=== PATIENT | female | born 1950 | race Caucasian/White ===

== ENCOUNTER 2017-07-21 12:23 | Observation (INO) ==
[2017-07-21 14:33] LABS: Basophils # 0.1 10*3/uL (0.0-0.2); Basophils % 0.9 % (0.0-0.8); Eosinophils # 0.1 10*3/uL (0.0-0.87); Eosinophils % 1.9 % (0.00-10.9); Hemoglobin 10.6 GM/DL (12.0-16.0); Immature Granulocytes % 0.4 %; Immature Granulocytes Absolute 0.03 #; Lymphocytes # 2.5 10*3/uL (1.4-4.0); Lymphocytes % 33.6 % (21.3-54.2); Mean Corpuscular HGB Conc 32.1 GM/DL (32-36); Mean Corpuscular Hemoglobin 28 PG (27-34); Mean Corpuscular Volume 86.6 FL (87-102); Mean Platelet Volume 9.2 FL (9.6-12.0); Monocytes # 0.8 10*3/uL (0.11-0.8); Monocytes % 10.2 % (1.7-12.7); Neutrophils # 3.9 10*3/uL (1.4-7.4); Platelet Count 255 T/CUMM (130-400); Red Blood Count 3.81 MC/CUMM (3.8-5.5); Red Cell Distribution Width 15.6 % (9.3-17.3); White Blood Count 7.4 T/CUMM (4-12)
[2017-07-21 14:39] LABS: INR 1.1; PT Patient Result 11.1 SECS; Partial Thromboplastin Time 26.2 SECS (0-40)
[2017-07-21 14:49] LABS: Alanine Aminotransferase 19 U/L (13-56); Albumin 3.1 G/DL (3.4-5.0); Alkaline Phosphatase 120 U/L (45-117); Aspartate Amino Transferase 16 U/L (0-37); Blood Urea Nitrogen 26 MG/DL (7-18); Calcium 8.8 MG/DL (8.5-10.1); Glucose 54 MG/DL (74-106); Osmolality,Calculated 281.4 MOS/KG (273-304); Potassium 4.1 MMOL/L (3.5-5.1); Sodium 140 MMOL/L (136-145); Total Protein 7.1 G/DL (6.4-8.3); Troponin I Only < 0.015 NG/ML (0.00-0.045)
[2017-07-21] MEDS ORDERED: FUROSEMIDE 40 MG/4 ML VIAL IV STA (15:49)
[2017-07-21] MEDS ORDERED: DEXTROSE 50% 25 GM/50 ML VIAL IV PRN (16:36)
[2017-07-21] MEDS ORDERED: ONDANSETRON 4 MG/2 ML VIAL IV PRN (16:36)
[2017-07-21] MEDS ORDERED: GLUCAGON 1 MG VIAL IM PRN (16:36)
[2017-07-21] MEDS ORDERED: ACETAMINOPHEN 325 MG TABLET PO PRN (16:36)
[2017-07-21] MEDS ORDERED: POTASSIUM CHLORIDE 20 MEQ TABLET PO STA (16:39)
[2017-07-21] MEDS ORDERED: GLIMEPIRIDE 2 MG TABLET PO SCH ×2 (17:00→21:00)
[2017-07-21] MEDS ORDERED: metFORMIN 500 MG TABLET PO SCH (17:00)
[2017-07-21] MEDS ORDERED: ATORVASTATIN 80 MG TABLET PO SCH (21:00)
[2017-07-21] MEDS ORDERED: INSULIN NPH/REGULAR 70/30 100 UNIT/ML SUBCUT SCH (21:00)
[2017-07-21] MEDS ORDERED: NORTRIPTYLINE 25 MG CAPSULE PO SCH (21:00)
[2017-07-21] MEDS ORDERED: ENOXAPARIN 40 MG/0.4 ML SYRINGE SUBCUT SCH (21:00)
[2017-07-21] MEDS ORDERED: IRBESARTAN 150 MG TABLET PO SCH (21:00)
[2017-07-21] MEDS ORDERED: hydroCHLOROthiazide 12.5 MG CAPSULE PO SCH (21:00)
[2017-07-21] MEDS: metFORMIN 500 MG TABLET PO SCH (21:30)
[2017-07-21] MEDS: FERROUS SULFATE 325 MG TABLET PO SCH (21:30)
[2017-07-21] MEDS: CARVEDILOL 12.5 MG TABLET PO SCH (21:30)
[2017-07-21] MEDS: INSULIN LISPRO 100 UNIT/ML SUBCUT SCH (21:32)
[2017-07-21] MEDS ORDERED: POTASSIUM CHLORIDE 20 MEQ TABLET PO ONE (22:00)
[2017-07-21] MEDS ORDERED: FUROSEMIDE 40 MG/4 ML VIAL IV ONE (22:00)
[2017-07-22 04:40] LABS: Calcium 9.5 MG/DL (8.5-10.1); Osmolality,Calculated 289.4 MOS/KG (273-304); Potassium 4.3 MMOL/L (3.5-5.1); Risk Ratio 4.54; Thyroid Stimulating Hormone 1.77 uIU/ml (0.358-3.74); VLDL CHOLESTEROL 62.8 MG/DL
[2017-07-22] MEDS: INSULIN LISPRO 100 UNIT/ML SUBCUT SCH ×2 (08:32→12:33)
[2017-07-22] MEDS ORDERED: CLOPIDOGREL 75 MG TABLET PO SCH (09:00)
[2017-07-22] MEDS ORDERED: POTASSIUM CHLORIDE 10 MEQ TABLET PO SCH (09:00)
[2017-07-22] MEDS ORDERED: INSULIN NPH/REGULAR 70/30 100 UNIT/ML SUBCUT SCH (09:00)
[2017-07-22] MEDS ORDERED: CYANOCOBALAMIN 500 MCG TABLET PO SCH (09:00)
[2017-07-22] MEDS ORDERED: FUROSEMIDE 40 MG TABLET PO SCH (09:00)
[2017-07-22] MEDS ORDERED: MAGNESIUM OXIDE 400 MG TABLET PO SCH (09:00)
[2017-07-22] MEDS ORDERED: PANTOPRAZOLE 20 MG TABLET PO SCH (09:00)
[2017-07-22] MEDS ORDERED: GLIMEPIRIDE 4 MG TABLET PO SCH (09:00)
[2017-07-22] MEDS: CARVEDILOL 12.5 MG TABLET PO SCH (09:55)
[2017-07-22] MEDS: FERROUS SULFATE 325 MG TABLET PO SCH (09:56)
[2017-07-22] MEDS: metFORMIN 500 MG TABLET PO SCH (09:56)
[2017-07-22] MEDS ORDERED: FUROSEMIDE 20 MG TABLET PO SCH (10:04)
[2017-07-22 12:54] VITALS: BP 143/89
== END 2017-07-22 14:56 | disposition home or self-care (01) ==
LOC: N.EDINP 12:23 → N.ED 12:23 → N.EDINP 17:20 → N.TELEN 17:33
PROVIDERS: ADMIT Hospitalist; ATTEND Hospitalist

== ENCOUNTER 2020-01-19 20:48 | Inpatient (IN) ==
[2020-01-19] MEDS ORDERED: NITROGLYCERIN 2% OINT 1 INCH/GM PACK TOP STA (21:51)
[2020-01-19] MEDS ORDERED: ASPIRIN 325 MG TABLET PO STA (21:51)
[2020-01-19] MEDS ORDERED: MORPHINE 4 MG/1 ML VIAL IV STA (21:51)
[2020-01-19] MEDS ORDERED: ONDANSETRON 4 MG/2 ML VIAL IV STA (21:51)
[2020-01-19] MEDS ORDERED: ALUM/MAG/SIMETH/LIDO VISC 1:1 30 ML BOTTLE PO STA (21:51)
[2020-01-19 22:00] LABS: Basophils # 0.1 10*3/uL (0.0-0.2); Basophils % 0.6 % (0.0-0.8); Eosinophils # 0.2 10*3/uL (0.0-0.87); Eosinophils % 2.2 % (0.00-10.9); Hematocrit 34.4 VOL% (35.7-47.0); Hemoglobin 11.5 GM/DL (12.0-16.0); Immature Granulocytes % 0.6 %; Immature Granulocytes Absolute 0.06 #; Lymphocytes # 2.1 10*3/uL (1.4-4.0); Lymphocytes % 21.7 % (21.3-54.2); Mean Corpuscular HGB Conc 33.4 GM/DL (32-36); Mean Corpuscular Volume 88.9 FL (87-102); Mean Platelet Volume 9.2 FL (9.6-12.0); Monocytes % 7.4 % (1.7-12.7); Neutrophils % 67.5 % (38.7-73.9); Platelet Count 267 T/CUMM (130-400); Red Blood Count 3.87 MC/CUMM (3.8-5.5); Red Cell Distribution Width 14.5 % (9.3-17.3); White Blood Count 9.7 T/CUMM (4-12)
[2020-01-19] MEDS ORDERED: NICOTINE 21 MG/24 HR PATCH TRANSDERM PRN (22:30)
[2020-01-19] MEDS ORDERED: hydrALAZINE 20 MG/1 ML VIAL IV PRN (22:30)
[2020-01-19] MEDS ORDERED: guaiFENesin/DM ER 600-30 MG TABLET PO PRN (22:30)
[2020-01-19] MEDS ORDERED: diphenhydrAMINE CAP 25 MG CAPSULE PO PRN (22:30)
[2020-01-19] MEDS ORDERED: DEXTROSE 50% 25 GM/50 ML VIAL IV PRN (22:30)
[2020-01-19] MEDS ORDERED: MORPHINE 4 MG/1 ML VIAL IV PRN (22:30)
[2020-01-19] MEDS ORDERED: GLUCAGON 1 MG VIAL IM PRN (22:30)
[2020-01-19] MEDS ORDERED: ACETAMINOPHEN 325 MG TABLET PO PRN (22:30)
[2020-01-19] MEDS ORDERED: ONDANSETRON 4 MG/2 ML VIAL IV PRN (22:30)
[2020-01-19 22:45] LABS: PT Patient Result 10.9 SECS (9.8-11.9)
[2020-01-19 23:03] LABS: Albumin 3.2 G/DL (3.4-5.0); Bilirubin,Total 0.4 MG/DL (0.2-1.0); Calcium 8.8 MG/DL (8.5-10.1); Osmolality,Calculated 293.5 MOS/KG (273-304); Total Protein 6.7 G/DL (6.4-8.3)
[2020-01-19] MEDS ORDERED: ENOXAPARIN 100 MG/ML SYRINGE SUBCUT STA (23:07)
[2020-01-19 23:08] LABS: Risk Ratio 6.91
[2020-01-20] MEDS ORDERED: CLOPIDOGREL 75 MG TABLET ONE (06:39)
[2020-01-20] MEDS ORDERED: CLOPIDOGREL 75 MG TABLET PO SCH (07:00)
[2020-01-20] MEDS ORDERED: FUROSEMIDE 20 MG TABLET PO SCH (09:00)
[2020-01-20] MEDS ORDERED: POTASSIUM CHLORIDE RIDER 10 MEQ in PREMIX 1 EACH IV PRN (09:07)
[2020-01-20] MEDS ORDERED: DIAZEPAM 5 MG TABLET PO ONE (09:07)
[2020-01-20] MEDS ORDERED: MAGNESIUM SULF RIDER 2 GM in PREMIX 1 EACH IV PRN (09:07)
[2020-01-20] MEDS ORDERED: diphenhydrAMINE CAP 25 MG CAPSULE PO ONE (09:07)
[2020-01-20] MEDS ORDERED: SODIUM CHLORIDE 0.45% 1,000 ML IV SCH (09:30)
[2020-01-20] MEDS ORDERED: HEPARIN/NACL 0.9% 2 UNITS/ML 1,000 ML IV ONE (12:20)
[2020-01-20] MEDS ORDERED: LIDOCAINE 1%/EPI INJ 20 ML VIAL ONE (12:45)
[2020-01-20] MEDS ORDERED: MIDAZOLAM 2 MG/2 ML VIAL ONE (12:45)
[2020-01-20] MEDS ORDERED: fentaNYL 100 MCG/2 ML VIAL ONE (12:45)
[2020-01-20] MEDS: INSULIN REGULAR 100 UNIT/ML SUBCUT SCH ×3 (12:59→21:43)
[2020-01-20] MEDS: INSULIN NPH/REGULAR 70/30 100 UNIT/ML SUBCUT SCH ×2 (14:26→21:43)
[2020-01-20] MEDS: PANTOPRAZOLE 40 MG TABLET PO SCH (14:37)
[2020-01-20] MEDS: ASPIRIN EC 81 MG TABLET PO SCH (14:37)
[2020-01-20] MEDS: carvediloL 25 MG TABLET PO SCH ×2 (14:37→17:51)
[2020-01-20] MEDS: HEPARIN DRIP 25,000 UNITS/500 ML PREMIX IV SCH (15:01)
[2020-01-20] MEDS: GLIMEPIRIDE 2 MG TABLET PO SCH (17:50)
[2020-01-20] MEDS ORDERED: NORTRIPTYLINE 75 MG CAPSULE PO SCH (21:00)
[2020-01-20] MEDS: LOSARTAN 50 MG TABLET PO SCH (21:38)
[2020-01-20] MEDS: traZODone 50 MG TABLET PO SCH (21:38)
[2020-01-20] MEDS: MAGNESIUM OXIDE 400 MG TABLET PO SCH (21:38)
[2020-01-20] MEDS: FERROUS SULFATE 325 MG TABLET PO SCH (21:39)
[2020-01-20] MEDS: ATORVASTATIN 80 MG TABLET PO SCH (21:39)
[2020-01-21 04:21] LABS: Basophils # 0.1 10*3/uL (0.0-0.2); Basophils % 0.6 % (0.0-0.8); Eosinophils # 0.3 10*3/uL (0.0-0.87); Eosinophils % 3.3 % (0.00-10.9); Hematocrit 31.9 VOL% (35.7-47.0); Hemoglobin 10.7 GM/DL (12.0-16.0); Immature Granulocytes % 0.5 %; Immature Granulocytes Absolute 0.04 #; Lymphocytes # 2.1 10*3/uL (1.4-4.0); Mean Corpuscular HGB Conc 33.5 GM/DL (32-36); Mean Corpuscular Volume 90.1 FL (87-102); Monocytes % 11.6 % (1.7-12.7); Platelet Count 192 T/CUMM (130-400); Red Blood Count 3.54 MC/CUMM (3.8-5.5); Red Cell Distribution Width 14.2 % (9.3-17.3); White Blood Count 8.1 T/CUMM (4-12)
[2020-01-21 04:46] LABS: Calcium 8.5 MG/DL (8.5-10.1)
[2020-01-21 05:23] LABS: Calcium 8.7 MG/DL (8.5-10.1); Osmolality,Calculated 280.8 MOS/KG (273-304)
[2020-01-21] MEDS ORDERED: CHLORHEXIDINE 4% SOLN 118 ML BOTTLE TOP SCH (09:00)
[2020-01-21] MEDS: INSULIN REGULAR 100 UNIT/ML SUBCUT SCH ×4 (09:00→21:27)
[2020-01-21] MEDS: PANTOPRAZOLE 40 MG TABLET PO SCH (09:02)
[2020-01-21] MEDS: GLIMEPIRIDE 2 MG TABLET PO SCH ×2 (09:02→17:11)
[2020-01-21] MEDS: CYANOCOBALAMIN 500 MCG TABLET PO SCH (09:03)
[2020-01-21] MEDS: MAGNESIUM OXIDE 400 MG TABLET PO SCH ×2 (09:03→21:25)
[2020-01-21] MEDS: ASPIRIN EC 81 MG TABLET PO SCH (09:03)
[2020-01-21] MEDS: SPIRONOLACTONE 25 MG TABLET PO SCH (09:04)
[2020-01-21] MEDS: allopurinoL 100 MG TABLET PO SCH (09:04)
[2020-01-21] MEDS: FERROUS SULFATE 325 MG TABLET PO SCH ×2 (09:05→21:25)
[2020-01-21] MEDS: carvediloL 25 MG TABLET PO SCH ×2 (09:05→17:11)
[2020-01-21] MEDS: FUROSEMIDE 40 MG/4 ML VIAL IV SCH (09:06)
[2020-01-21] MEDS: INSULIN NPH/REGULAR 70/30 100 UNIT/ML SUBCUT SCH ×2 (09:07→21:27)
[2020-01-21] MEDS: HEPARIN DRIP 25,000 UNITS/500 ML PREMIX IV SCH ×2 (09:14→14:52)
[2020-01-21 10:33] LABS: Allen Test Positive; Pt O2 Delivery Device Room Air
[2020-01-21 10:36] LABS: ABG Base Excess 0.5 MMOL/L (-2.5-2.5); ABG HCO3 24.8 MMOL/L (20-26); ABG Oxygen Saturation 94.1 % (95-100); ABG PH 7.447 (7.35-7.45); ABG PO2 70.8 MM HG (80-95); ABG TCO2 21.7 MMOL/L (23-27)
[2020-01-21] MEDS: CHLORHEXIDINE 0.12% ORAL RINSE 60 ML BOTTLE SWISH/SPIT SCH ×2 (11:32→21:25)
[2020-01-21] MEDS: SODIUM CHLORIDE 0.9% 1,000 ML IV SCH (11:32)
[2020-01-21] MEDS: CHLORHEXIDINE 4% SOLN 118 ML BOTTLE TOP SCH ×2 (17:11→21:27)
[2020-01-21] MEDS: ATORVASTATIN 80 MG TABLET PO SCH (21:25)
[2020-01-21] MEDS: traZODone 50 MG TABLET PO SCH (21:25)
[2020-01-21] MEDS: LOSARTAN 50 MG TABLET PO SCH (21:25)
[2020-01-22] MEDS: CHLORHEXIDINE 4% SOLN 118 ML BOTTLE TOP SCH (04:25)
[2020-01-22] MEDS ORDERED: PAPAVERINE 60 MG/2 ML VIAL ONE (04:37)
[2020-01-22] MEDS ORDERED: VANCOMYCIN 1,000 MG VIAL ONE (04:38)
[2020-01-22] MEDS ORDERED: VANCOMYCIN 500 MG VIAL ONE (04:38)
[2020-01-22] MEDS ORDERED: CEFUROXIME INJ 1,500 MG in SYRINGE 1 EACH IV ONE (05:00)
[2020-01-22] MEDS ORDERED: FAMOTIDINE 20 MG TABLET PO ONE ×2 (05:43→05:44)
[2020-01-22] MEDS ORDERED: DIAZEPAM 5 MG TABLET PO ONE ×2 (05:44→05:46)
[2020-01-22] MEDS ORDERED: PHENYLEPHRINE DRIP 20 MG/250 ML PREMIX IV ONE (05:55)
[2020-01-22] MEDS ORDERED: VECURONIUM 10 MG VIAL IV ONE ×4 (05:56→08:10)
[2020-01-22] MEDS ORDERED: ETOMIDATE 40 MG/20 ML VIAL IV ONE (05:56)
[2020-01-22] MEDS ORDERED: CALCIUM CHLORIDE 1,000 MG/10 ML VIAL IV ONE ×2 (05:56→10:33)
[2020-01-22] MEDS ORDERED: AMINOCAPROIC ACID 5,000 MG/20 ML VIAL ONE ×4 (05:56)
[2020-01-22] MEDS ORDERED: LIDOCAINE 2% 5 ML VIAL ONE ×2 (05:56→11:29)
[2020-01-22] MEDS ORDERED: ePHEDrine 50 MG/ML VIAL ONE (06:05)
[2020-01-22] MEDS ORDERED: SUFentanil 250 MCG/5 ML AMP ONE (06:06)
[2020-01-22] MEDS ORDERED: MIDAZOLAM 10 MG/2 ML VIAL ONE ×3 (06:06→08:09)
[2020-01-22] MEDS ORDERED: NITROPRUSSIDE 50 MG/2 ML VIAL ONE (07:27)
[2020-01-22] MEDS ORDERED: SODIUM BICARBONATE 50 MEQ/50 ML VIAL IV ONE ×3 (07:27→11:37)
[2020-01-22] MEDS ORDERED: PHENYLEPHRINE DRIP 40 MG/250 ML PREMIX IV ONE (07:28)
[2020-01-22] MEDS ORDERED: CALCIUM CHLORIDE 1,000 MG/10 ML SYRINGE IV ONE (07:28)
[2020-01-22] MEDS ORDERED: POTASSIUM CHLORIDE RIDER 100 ML IV ONE (07:28)
[2020-01-22 07:41] LABS: ABG Base Excess -2.2 MMOL/L (-2.5-2.5); ABG HCO3 22.6 MMOL/L (20-26); ABG Oxygen Saturation 99.5 % (95-100); ABG PCO2 46.3 MM HG (35-48); ABG PH 7.323 (7.35-7.45); Glucose Heart Surgery 227 MG/DL (74-106); Hematocrit Heart Surgery 31.3 PERCENT (37-47); Hemoglobin Heart Surgery 10.1 G/DL (12.0-16.0); Ionized Calcium Arterial 1.19 MMOL/L (1.21-1.46); PCO2 Patient Temp Arterial 46.3 MMHG; PH Patient Temp Arterial 7.323; Patient Temperature 37 CELCIUS; Potassium Heart/CVR 3.9 MMOL/L (3.5-5.1); Sodium Heart/CVR 137 MMOL/L (135-145)
[2020-01-22] MEDS ORDERED: MINERAL OIL/PETROLATUM OPH OINT 3.5 GM TUBE ONE (07:46)
[2020-01-22 08:06] LABS: Bilirubin,Urine Negative (Negative); Blood, Urine Negative (Negative); Glucose,Urine (UA) Negative (Negative); Ketones,Urine Negative (Negative); Nitrite,Urine Negative (Negative); Protein,Urine Negative; RBC,Urine 2 /HPF (0-4); Urine Appearance CLEAR (Clear); Urine Color Yellow (Yellow); Urine Specific Gravity 1.008 (1.001-1.035); Urine Urobilinogen < 2.0 EU/DL (0.2-1.0); WBC,Urine 1 /HPF (0-6)
[2020-01-22] MEDS: GLIMEPIRIDE 2 MG TABLET PO SCH (08:07)
[2020-01-22] MEDS: INSULIN REGULAR 100 UNIT/ML SUBCUT SCH ×2 (08:07→11:14)
[2020-01-22] MEDS: carvediloL 25 MG TABLET PO SCH (08:07)
[2020-01-22] MEDS: MAGNESIUM OXIDE 400 MG TABLET PO SCH (08:13)
[2020-01-22] MEDS: SPIRONOLACTONE 25 MG TABLET PO SCH (08:13)
[2020-01-22] MEDS: FUROSEMIDE 40 MG/4 ML VIAL IV SCH (08:13)
[2020-01-22] MEDS: INSULIN NPH/REGULAR 70/30 100 UNIT/ML SUBCUT SCH (08:13)
[2020-01-22] MEDS: ASPIRIN EC 81 MG TABLET PO SCH (08:13)
[2020-01-22] MEDS: FERROUS SULFATE 325 MG TABLET PO SCH (08:13)
[2020-01-22] MEDS: PANTOPRAZOLE 40 MG TABLET PO SCH (08:14)
[2020-01-22] MEDS: SODIUM CHLORIDE 0.9% 1,000 ML IV SCH (08:14)
[2020-01-22] MEDS: allopurinoL 100 MG TABLET PO SCH (08:14)
[2020-01-22] MEDS: CYANOCOBALAMIN 500 MCG TABLET PO SCH (08:14)
[2020-01-22] MEDS: CHLORHEXIDINE 0.12% ORAL RINSE 60 ML BOTTLE SWISH/SPIT SCH ×2 (08:14→21:10)
[2020-01-22] MEDS ORDERED: HEPARIN/NACL 0.9% 2 UNITS/ML 500 ML IV ONE ×2 (09:17→11:31)
[2020-01-22 09:22] LABS: Hematocrit Heart Surgery 20.3 PERCENT (37-47); Hemoglobin Heart Surgery 6.5 G/DL (12.0-16.0); PCO2 Patient Temp Venous 34.3 MM HG; PH Patient Temp Venous 7.444; Potassium Heart/CVR 4.7 MMOL/L (3.5-5.1); VBG Base Excess -0.1 MEQ/L (0-4); VBG HCO3 24.2 MEQ/L (24-28); VBG Oxygen Saturation 83.7 %; VBG PCO2 39.6 MMHG (41-51); VBG PH 7.4; VBG PO2 51.4 MMHG (17-40)
[2020-01-22] MEDS ORDERED: EPINEPHrine 1 MG/ML VIAL ONE ×5 (09:49→09:51)
[2020-01-22] MEDS ORDERED: diphenhydrAMINE 50 MG/1 ML VIAL ONE (09:50)
[2020-01-22] MEDS ORDERED: FAMOTIDINE 20 MG/2 ML VIAL IV ONE (09:50)
[2020-01-22 09:51] LABS: Hematocrit Heart Surgery 21.3 PERCENT (37-47); Hemoglobin Heart Surgery 6.8 G/DL (12.0-16.0); PCO2 Patient Temp Venous 35.1 MM HG; PH Patient Temp Venous 7.431; PO2 Patient Temp Venous 41.5 MM HG; Potassium Heart/CVR 4.8 MMOL/L (3.5-5.1); VBG Base Excess -0.5 MEQ/L (0-4); VBG HCO3 23.8 MEQ/L (24-28); VBG Oxygen Saturation 82.3 %; VBG PCO2 40.5 MMHG (41-51); VBG PH 7.387; VBG PO2 50.8 MMHG (17-40)
[2020-01-22] MEDS ORDERED: SODIUM CHLORIDE 0.9% 1,000 ML IV ONE (09:51)
[2020-01-22] MEDS ORDERED: LACTATED RINGERS 1,000 ML IV ONE (09:51)
[2020-01-22] MEDS ORDERED: SODIUM CHLORIDE 0.9% 500 ML IV ONE (09:51)
[2020-01-22 10:22] LABS: PCO2 Patient Temp Venous 38.9 MM HG; PH Patient Temp Venous 7.404; PO2 Patient Temp Venous 41.7 MM HG; Potassium Heart/CVR 5.3 MMOL/L (3.5-5.1); VBG Base Excess -0.3 MEQ/L (0-4); VBG HCO3 23.9 MEQ/L (24-28); VBG Oxygen Saturation 72.5 %; VBG PCO2 38.9 MMHG (41-51); VBG PH 7.404; VBG PO2 41.7 MMHG (17-40)
[2020-01-22 10:33] LABS: Hemoglobin Heart Surgery 6.4 G/DL (12.0-16.0)
[2020-01-22 10:52] LABS: Hematocrit Heart Surgery 24.6 PERCENT (37-47); Hemoglobin Heart Surgery 7.9 G/DL (12.0-16.0); PCO2 Patient Temp Venous 41.1 MM HG; PH Patient Temp Venous 7.353; PO2 Patient Temp Venous 43.7 MM HG; Potassium Heart/CVR 5.5 MMOL/L (3.5-5.1); VBG Base Excess -2.5 MEQ/L (0-4); VBG HCO3 22.1 MEQ/L (24-28); VBG Oxygen Saturation 77.9 %; VBG PCO2 41.1 MMHG (41-51); VBG PH 7.353; VBG PO2 43.7 MMHG (17-40)
[2020-01-22] MEDS ORDERED: THROMBIN TOPICAL (RECOMBINANT) 5,000 UNIT VIAL TOP ONE (11:15)
[2020-01-22 11:28] LABS: ABG Base Excess -2.8 MMOL/L (-2.5-2.5); ABG Oxygen Saturation 93.6 % (95-100); ABG PCO2 37.1 MM HG (35-48); ABG PO2 65.6 MM HG (80-95); ABG TCO2 20.2 MMOL/L (23-27); Glucose Heart Surgery 398 MG/DL (74-106); Hematocrit Heart Surgery 28.5 PERCENT (37-47); Hemoglobin Heart Surgery 9.2 G/DL (12.0-16.0); Ionized Calcium Arterial 1.33 MMOL/L (1.21-1.46); PCO2 Patient Temp Arterial 37.1 MMHG; PO2 Patient Temp Arterial 65.6 MM HG; Patient Temperature 37 CELCIUS; Potassium Heart/CVR 4.2 MMOL/L (3.5-5.1); Sodium Heart/CVR 133 MMOL/L (135-145)
[2020-01-22] MEDS ORDERED: methylPREDNISolone SOD SUC 1,000 MG/8 ML VIAL ONE (11:29)
[2020-01-22] MEDS ORDERED: ALBUMIN 25% 25 GM/100 ML VIAL IV ONE (11:29)
[2020-01-22] MEDS ORDERED: DEXTROSE 5% KCL 20 MEQ 20 MEQ/1,000 ML BAG IV ONE (11:29)
[2020-01-22] MEDS ORDERED: MANNITOL 100 GM/500 ML BAG IV ONE (11:29)
[2020-01-22] MEDS ORDERED: MAGNESIUM SULFATE 5 GM/10 ML VIAL IV ONE (11:29)
[2020-01-22] MEDS ORDERED: FUROSEMIDE 20 MG/2 ML VIAL ONE (11:30)
[2020-01-22] MEDS ORDERED: PROTAMINE SULFATE 250 MG/25 ML VIAL IV ONE (11:30)
[2020-01-22] MEDS ORDERED: HEPARIN 10,000 UNIT/10 ML VIAL ONE (11:31)
[2020-01-22] MEDS ORDERED: DOBUTamine 500 MG/250 ML PREMIX IV ONE ×2 (11:33→12:06)
[2020-01-22] MEDS ORDERED: ALBUMIN 5% 12.5 GM/250 ML VIAL IV ONE ×2 (11:42)
[2020-01-22] MEDS ORDERED: ACETAMINOPHEN 650 MG SUPP RECTAL PRN (12:05)
[2020-01-22] MEDS ORDERED: LACTATED RINGERS 250 ML IV PRN (12:05)
[2020-01-22] MEDS ORDERED: SODIUM CHLORIDE 0.45% 1,000 ML IV SCH ×2 (12:05)
[2020-01-22] MEDS ORDERED: ONDANSETRON 4 MG/2 ML VIAL IV PRN (12:05)
[2020-01-22] MEDS ORDERED: MORPHINE 10 MG/1 ML VIAL IV PRN (12:05)
[2020-01-22] MEDS ORDERED: MAGNESIUM SULF RIDER 4 GM in PREMIX 1 EACH IV PRN (12:05)
[2020-01-22] MEDS ORDERED: DEXTROSE 50% 25 GM/50 ML VIAL IV PRN ×2 (12:05)
[2020-01-22] MEDS ORDERED: MIDAZOLAM 2 MG/2 ML VIAL IV PRN (12:05)
[2020-01-22] MEDS ORDERED: CHLORHEXIDINE 4% SOLN 118 ML BOTTLE TOP PRN (12:05)
[2020-01-22] MEDS ORDERED: PHENYLEPHRINE DRIP 40 MG/250 ML PREMIX IV PRN (12:05)
[2020-01-22] MEDS ORDERED: POTASSIUM CHLORIDE RIDER 10 MEQ in PREMIX 1 EACH IV PRN (12:05)
[2020-01-22] MEDS ORDERED: MAGNESIUM SULF RIDER 2 GM in PREMIX 1 EACH IV PRN (12:05)
[2020-01-22] MEDS ORDERED: NITROPRUSSIDE 100 MG in DEXTROSE 5% 250 ML IV PRN (12:05)
[2020-01-22] MEDS ORDERED: VECURONIUM 10 MG VIAL IV PRN ×2 (12:05)
[2020-01-22] MEDS ORDERED: MIDAZOLAM 10 MG/2 ML VIAL IV PRN (12:05)
[2020-01-22] MEDS ORDERED: CALCIUM CHLORIDE 1,000 MG/10 ML SYRINGE IV PRN (12:05)
[2020-01-22] MEDS ORDERED: INSULIN REGULAR 100 UNIT/ML IV ONE (12:05)
[2020-01-22] MEDS ORDERED: PROTAMINE SULFATE 50 MG/5 ML VIAL IV ONE ×2 (12:25)
[2020-01-22 12:42] LABS: ABG HCO3 25.4 MMOL/L (20-26); ABG Oxygen Saturation 99.2 % (95-100); ABG PCO2 34.2 MM HG (35-48); ABG PH 7.463 (7.35-7.45); ABG TCO2 22.5 MMOL/L (23-27); Glucose Heart Surgery 347 MG/DL (74-106); Hematocrit Heart Surgery 28.2 PERCENT (37-47); Hemoglobin Heart Surgery 9.1 G/DL (12.0-16.0); Potassium Heart/CVR 3.6 MMOL/L (3.5-5.1)
[2020-01-22 12:47] LABS: Basophils % 0.3 % (0.0-0.8); Eosinophils # 0.1 10*3/uL (0.0-0.87); Eosinophils % 0.7 % (0.00-10.9); Hematocrit 25.5 VOL% (35.7-47.0); Immature Granulocytes % 1.1 %; Immature Granulocytes Absolute 0.13 #; Lymphocytes % 8.2 % (21.3-54.2); Mean Corpuscular HGB Conc 35.3 GM/DL (32-36); Mean Corpuscular Volume 87.6 FL (87-102); Mean Platelet Volume 9.6 FL (9.6-12.0); Monocytes % 9.1 % (1.7-12.7); Neutrophils % 80.6 % (38.7-73.9); Platelet Count 165 T/CUMM (130-400); Red Blood Count 2.91 MC/CUMM (3.8-5.5); Red Cell Distribution Width 14.3 % (9.3-17.3); White Blood Count 11.6 T/CUMM (4-12)
[2020-01-22] MEDS: DOBUTamine 500 MG/250 ML PREMIX IV SCH (12:51)
[2020-01-22 12:58] LABS: INR 1.6; PT Patient Result 16.7 SECS (9.8-11.9); Partial Thromboplastin Time 29.3 SECS (23.9-33.8)
[2020-01-22] MEDS: INSULIN REGULAR DRIP 100 ML IV SCH ×2 (13:02→21:50)
[2020-01-22 13:08] LABS: CKMB % 5.1 %
[2020-01-22 13:11] LABS: Troponin I 10.2 NG/ML (0.00-0.045)
[2020-01-22] MEDS: POTASSIUM CHLORIDE RIDER 20 MEQ in PREMIX 1 EACH IV PRN ×3 (13:22→16:53)
[2020-01-22 13:29] LABS: Albumin 2.4 G/DL (3.4-5.0); Bilirubin,Total 1.9 MG/DL (0.2-1.0); Calcium 9.2 MG/DL (8.5-10.1); Osmolality,Calculated 292.5 MOS/KG (273-304); Total Protein 5.2 G/DL (6.4-8.3)
[2020-01-22 13:46] LABS: Hematocrit Heart Surgery 31.3 PERCENT (37-47); Hemoglobin Heart Surgery 10.1 G/DL (12.0-16.0); PCO2 Patient Temp Venous 43.2 MM HG; PH Patient Temp Venous 7.39; PO2 Patient Temp Venous 23.5 MM HG; VBG HCO3 24.4 MEQ/L (24-28); VBG Oxygen Saturation 41.8 %; VBG PCO2 43.2 MMHG (41-51); VBG PH 7.39; VBG PO2 23.5 MMHG (17-40)
[2020-01-22] MEDS: ALBUMIN 5% 12.5 GM in PREMIX 1 EACH IV PRN ×3 (14:25→19:33)
[2020-01-22 14:48] LABS: ABG Base Excess -0.1 MMOL/L (-2.5-2.5); ABG HCO3 24.3 MMOL/L (20-26); ABG Oxygen Saturation 97.8 % (95-100); ABG PCO2 32.6 MM HG (35-48); ABG PO2 93.6 MM HG (80-95); Glucose Heart Surgery 292 MG/DL (74-106); Hematocrit Heart Surgery 31.4 PERCENT (37-47); Hemoglobin Heart Surgery 10.1 G/DL (12.0-16.0); Potassium Heart/CVR 3.7 MMOL/L (3.5-5.1)
[2020-01-22] MEDS: INSULIN REGULAR 100 UNIT/ML IV PRN ×2 (15:22→16:56)
[2020-01-22 16:00] LABS: Hematocrit Heart Surgery 29.8 PERCENT (37-47); Hemoglobin Heart Surgery 9.6 G/DL (12.0-16.0); PCO2 Patient Temp Venous 42.3 MM HG; PH Patient Temp Venous 7.401; PO2 Patient Temp Venous 25.5 MM HG; Potassium Heart/CVR 4.6 MMOL/L (3.5-5.1); VBG Base Excess 1.3 MEQ/L (0-4); VBG HCO3 24.8 MEQ/L (24-28); VBG Oxygen Saturation 45.4 %; VBG PCO2 42.3 MMHG (41-51); VBG PH 7.401; VBG PO2 25.5 MMHG (17-40)
[2020-01-22 16:44] LABS: ABG Base Excess 1.1 MMOL/L (-2.5-2.5); ABG HCO3 25.4 MMOL/L (20-26); ABG Oxygen Saturation 97.8 % (95-100); ABG PH 7.456 (7.35-7.45); ABG PO2 88.9 MM HG (80-95); ABG TCO2 22.4 MMOL/L (23-27); Glucose Heart Surgery 248 MG/DL (74-106); Hematocrit Heart Surgery 30.6 PERCENT (37-47); Hemoglobin Heart Surgery 9.9 G/DL (12.0-16.0); Potassium Heart/CVR 4.1 MMOL/L (3.5-5.1)
[2020-01-22 18:50] LABS: ABG Base Excess 1.4 MMOL/L (-2.5-2.5); ABG HCO3 25.6 MMOL/L (20-26); ABG Oxygen Saturation 97.9 % (95-100); ABG PCO2 34.7 MM HG (35-48); ABG PH 7.463 (7.35-7.45); ABG PO2 90.6 MM HG (80-95); ABG TCO2 22.4 MMOL/L (23-27); Glucose Heart Surgery 191 MG/DL (74-106); Hematocrit Heart Surgery 31.7 PERCENT (37-47); Hemoglobin Heart Surgery 10.2 G/DL (12.0-16.0); Potassium Heart/CVR 4.3 MMOL/L (3.5-5.1)
[2020-01-22] MEDS: CEFUROXIME INJ 1,500 MG in SYRINGE 1 EACH IV SCH (18:50)
[2020-01-22 19:59] LABS: VBG Base Excess 1.8 MEQ/L (0-4); VBG HCO3 25.1 MEQ/L (24-28); VBG Oxygen Saturation 44.2 %; VBG PCO2 43.8 MMHG (41-51); VBG PH 7.396; VBG PO2 26.1 MMHG (17-40)
[2020-01-22 20:27] LABS: CKMB % 4.3 %
[2020-01-22 20:28] LABS: Troponin I 9.97 NG/ML (0.00-0.045)
[2020-01-22 20:52] LABS: ABG Base Excess 0.9 MMOL/L (-2.5-2.5); ABG HCO3 25.2 MMOL/L (20-26); ABG PCO2 37.3 MM HG (35-48); ABG PH 7.433 (7.35-7.45); ABG PO2 86.9 MM HG (80-95); ABG TCO2 22.8 MMOL/L (23-27); Glucose Heart Surgery 145 MG/DL (74-106); Hematocrit Heart Surgery 29.2 PERCENT (37-47); Hemoglobin Heart Surgery 9.4 G/DL (12.0-16.0)
[2020-01-22 21:50] LABS: ABG Base Excess 1.3 MMOL/L (-2.5-2.5); ABG HCO3 25.6 MMOL/L (20-26); ABG Oxygen Saturation 97.2 % (95-100); ABG PCO2 36.3 MM HG (35-48); ABG PH 7.448 (7.35-7.45); ABG PO2 84.7 MM HG (80-95); Glucose Heart Surgery 128 MG/DL (74-106); Hematocrit Heart Surgery 29.2 PERCENT (37-47); Hemoglobin Heart Surgery 9.4 G/DL (12.0-16.0); Potassium Heart/CVR 4.1 MMOL/L (3.5-5.1)
[2020-01-22] MEDS ORDERED: FUROSEMIDE 40 MG/4 ML VIAL IV ONE (22:58)
[2020-01-22 23:34] LABS: ABG Base Excess 0.3 MMOL/L (-2.5-2.5); ABG PCO2 35.7 MM HG (35-48); ABG PH 7.446 (7.35-7.45); ABG PO2 79.9 MM HG (80-95); ABG TCO2 25.1 MMOL/L (23-27); Glucose Heart Surgery 96 MG/DL (74-106); Potassium Heart/CVR 3.9 MMOL/L (3.5-5.1)
[2020-01-23 00:40] LABS: ABG Base Excess 1.8 MMOL/L (-2.5-2.5); ABG Oxygen Saturation 95.1 % (95-100); ABG PCO2 38.2 MM HG (35-48); ABG PH 7.439 (7.35-7.45); ABG PO2 72.6 MM HG (80-95); ABG TCO2 23.3 MMOL/L (23-27); Glucose Heart Surgery 146 MG/DL (74-106); Hematocrit Heart Surgery 32.8 PERCENT (37-47); Hemoglobin Heart Surgery 10.6 G/DL (12.0-16.0); Potassium Heart/CVR 4.5 MMOL/L (3.5-5.1)
[2020-01-23] MEDS: MORPHINE 4 MG/1 ML VIAL IV PRN ×4 (01:47→22:47)
[2020-01-23 02:16] LABS: ABG Base Excess 0.6 MMOL/L (-2.5-2.5); ABG HCO3 24.9 MMOL/L (20-26); ABG Oxygen Saturation 95.2 % (95-100); ABG PCO2 38.1 MM HG (35-48); ABG PH 7.423 (7.35-7.45); ABG PO2 74.3 MM HG (80-95); ABG TCO2 22.4 MMOL/L (23-27); Glucose Heart Surgery 191 MG/DL (74-106); Hematocrit Heart Surgery 32.7 PERCENT (37-47); Hemoglobin Heart Surgery 10.6 G/DL (12.0-16.0); Potassium Heart/CVR 4.1 MMOL/L (3.5-5.1)
[2020-01-23 03:23] LABS: ABG Base Excess 1.3 MMOL/L (-2.5-2.5); ABG HCO3 25.5 MMOL/L (20-26); ABG Oxygen Saturation 95.3 % (95-100); ABG PH 7.467 (7.35-7.45); ABG PO2 73.2 MM HG (80-95); ABG TCO2 22.1 MMOL/L (23-27); Glucose Heart Surgery 184 MG/DL (74-106); Hematocrit Heart Surgery 32.9 PERCENT (37-47); Hemoglobin Heart Surgery 10.7 G/DL (12.0-16.0); Potassium Heart/CVR 4.1 MMOL/L (3.5-5.1)
[2020-01-23 03:30] LABS: Basophils % 0.2 % (0.0-0.8); Hematocrit 29.7 VOL% (35.7-47.0); Hemoglobin 10.4 GM/DL (12.0-16.0); Immature Granulocytes % 0.5 %; Immature Granulocytes Absolute 0.06 #; Lymphocytes # 0.6 10*3/uL (1.4-4.0); Lymphocytes % 4.1 % (21.3-54.2); Mean Corpuscular Volume 84.4 FL (87-102); Mean Platelet Volume 9.7 FL (9.6-12.0); Neutrophils % 89.2 % (38.7-73.9); Platelet Count 124 T/CUMM (130-400); Red Blood Count 3.52 MC/CUMM (3.8-5.5); Red Cell Distribution Width 15.4 % (9.3-17.3); White Blood Count 13.3 T/CUMM (4-12)
[2020-01-23 04:02] LABS: Band Neutrophils 4 % (0-10); Lymphocytes 6 % (20-55); Segmented Neutrophils 85 % (50-85); Total Cells Counted 100
[2020-01-23 04:03] LABS: Hypochromasia 1+; Microcytosis 1+
[2020-01-23 04:10] LABS: CKMB % 5.8 %
[2020-01-23 04:14] LABS: Troponin I 12.7 NG/ML (0.00-0.045)
[2020-01-23 04:25] LABS: ABG Base Excess 1.3 MMOL/L (-2.5-2.5); ABG HCO3 25.5 MMOL/L (20-26); ABG Oxygen Saturation 96.2 % (95-100); ABG PCO2 35.9 MM HG (35-48); ABG PO2 79.3 MM HG (80-95); ABG TCO2 22.2 MMOL/L (23-27); Glucose Heart Surgery 189 MG/DL (74-106); Hematocrit Heart Surgery 34.8 PERCENT (37-47); Hemoglobin Heart Surgery 11.3 G/DL (12.0-16.0)
[2020-01-23 04:33] LABS: Albumin 3.4 G/DL (3.4-5.0); Bilirubin,Direct 0.96 MG/DL (0.0-0.20); Bilirubin,Total 1.8 MG/DL (0.2-1.0); Calcium 8.6 MG/DL (8.5-10.1); Osmolality,Calculated 292.1 MOS/KG (273-304); Total Protein 5.7 G/DL (6.4-8.3)
[2020-01-23 06:12] LABS: ABG Base Excess 1.8 MMOL/L (-2.5-2.5); ABG HCO3 25.9 MMOL/L (20-26); ABG Oxygen Saturation 93.5 % (95-100); ABG PCO2 36.3 MM HG (35-48); ABG PH 7.454 (7.35-7.45); ABG PO2 68.6 MM HG (80-95); ABG TCO2 22.9 MMOL/L (23-27); Glucose Heart Surgery 191 MG/DL (74-106); Hematocrit Heart Surgery 33.3 PERCENT (37-47); Hemoglobin Heart Surgery 10.8 G/DL (12.0-16.0); Potassium Heart/CVR 3.8 MMOL/L (3.5-5.1)
[2020-01-23] MEDS: CEFUROXIME INJ 1,500 MG in SYRINGE 1 EACH IV SCH (06:59)
[2020-01-23 07:48] LABS: ABG Base Excess 1.7 MMOL/L (-2.5-2.5); ABG HCO3 25.9 MMOL/L (20-26); ABG Oxygen Saturation 98.6 % (95-100); ABG PH 7.455 (7.35-7.45); ABG TCO2 22.8 MMOL/L (23-27); Glucose Heart Surgery 198 MG/DL (74-106); Hematocrit Heart Surgery 32.4 PERCENT (37-47); Hemoglobin Heart Surgery 10.5 G/DL (12.0-16.0); Potassium Heart/CVR 4.3 MMOL/L (3.5-5.1)
[2020-01-23] MEDS: INSULIN REGULAR 100 UNIT/ML SUBCUT SCH ×4 (08:02→21:33)
[2020-01-23] MEDS: CHLORHEXIDINE 0.12% ORAL RINSE 60 ML BOTTLE SWISH/SPIT SCH ×2 (08:03→21:38)
[2020-01-23] MEDS ORDERED: ERGOCALCIFEROL 50,000 UNIT CAPSULE PO SCH (09:00)
[2020-01-23] MEDS ORDERED: SODIUM CHLOR 0.45% KCL 20 MEQ 20 MEQ/1,000 ML BAG IV SCH ×2 (11:00→13:05)
[2020-01-23] MEDS: DOBUTamine 500 MG/250 ML PREMIX IV SCH (12:04)
[2020-01-23] MEDS ORDERED: MAGNESIUM SULF RIDER 2 GM in PREMIX 1 EACH IV PRN (13:05)
[2020-01-23] MEDS ORDERED: ONDANSETRON 4 MG/2 ML VIAL IV PRN (13:05)
[2020-01-23] MEDS ORDERED: GLUCAGON 1 MG VIAL IM PRN ×2 (13:05)
[2020-01-23] MEDS ORDERED: ZALEPLON 5 MG CAPSULE PO PRN (13:05)
[2020-01-23] MEDS ORDERED: MAGNESIUM SULF RIDER 4 GM in PREMIX 1 EACH IV PRN (13:05)
[2020-01-23] MEDS ORDERED: DEXTROSE 50% 25 GM/50 ML VIAL IV PRN ×2 (13:05)
[2020-01-23] MEDS ORDERED: ALUMINUM/MAGNES/SIMETH MAX STR 30 ML UDCUP PO PRN (13:05)
[2020-01-23] MEDS ORDERED: MAGNESIUM HYDROXIDE SUSP 30 ML UDCUP PO PRN (13:05)
[2020-01-23] MEDS ORDERED: ACETAMINOPHEN 325 MG TABLET PO PRN (13:05)
[2020-01-23] MEDS: carvediloL 25 MG TABLET PO SCH ×2 (13:27→21:36)
[2020-01-23] MEDS: SPIRONOLACTONE 25 MG TABLET PO SCH (13:27)
[2020-01-23] MEDS: GLIMEPIRIDE 2 MG TABLET PO SCH (16:30)
[2020-01-23] MEDS: metFORMIN 500 MG TABLET PO SCH (16:31)
[2020-01-23] MEDS ORDERED: PANTOPRAZOLE 20 MG TABLET PO SCH (21:00)
[2020-01-23] MEDS: INSULIN NPH/REGULAR 70/30 100 UNIT/ML SUBCUT SCH (21:34)
[2020-01-23] MEDS: traZODone 50 MG TABLET PO SCH (21:35)
[2020-01-23] MEDS: ATORVASTATIN 80 MG TABLET PO SCH (21:35)
[2020-01-23] MEDS: LOSARTAN 50 MG TABLET PO SCH (21:35)
[2020-01-23] MEDS: oxyCODONE/ACETAMINOPHEN 5-325 MG TABLET PO PRN (21:36)
[2020-01-23] MEDS: NORTRIPTYLINE 75 MG CAPSULE PO SCH (21:41)
[2020-01-23] MEDS: MAGNESIUM OXIDE 400 MG TABLET PO SCH (21:41)
[2020-01-24] MEDS: MORPHINE 4 MG/1 ML VIAL IV PRN ×5 (02:23→21:20)
[2020-01-24] MEDS ORDERED: FUROSEMIDE 40 MG/4 ML VIAL IV ONE (06:00)
[2020-01-24 07:21] LABS: Albumin 2.6 G/DL (3.4-5.0); Bilirubin,Direct 0.17 MG/DL (0.0-0.20); Bilirubin,Indirect 0.5 MG/DL (0.0-1.0); Bilirubin,Total 0.7 MG/DL (0.2-1.0); CKMB % 5.2 %; Calcium 8.5 MG/DL (8.5-10.1); Total Protein 5.8 G/DL (6.4-8.3); Troponin I 7.11 NG/ML (0.00-0.045)
[2020-01-24 08:29] LABS: Basophils % 0.3 % (0.0-0.8); Eosinophils % 0.1 % (0.00-10.9); Hematocrit 29.4 VOL% (35.7-47.0); Hemoglobin 9.3 GM/DL (12.0-16.0); Immature Granulocytes % 0.4 %; Immature Granulocytes Absolute 0.05 #; Lymphocytes % 8.6 % (21.3-54.2); Mean Corpuscular HGB Conc 31.6 GM/DL (32-36); Mean Corpuscular Volume 91.6 FL (87-102); Mean Platelet Volume 10.2 FL (9.6-12.0); Monocytes % 14.2 % (1.7-12.7); Neutrophils % 76.4 % (38.7-73.9); Platelet Count 124 T/CUMM (130-400); Red Blood Count 3.21 MC/CUMM (3.8-5.5); Red Cell Distribution Width 15.9 % (9.3-17.3); White Blood Count 11.3 T/CUMM (4-12)
[2020-01-24] MEDS: INSULIN NPH/REGULAR 70/30 100 UNIT/ML SUBCUT SCH ×2 (09:30→20:11)
[2020-01-24] MEDS: CYANOCOBALAMIN 500 MCG TABLET PO SCH (09:31)
[2020-01-24] MEDS: INSULIN REGULAR 100 UNIT/ML SUBCUT SCH ×4 (09:31→21:11)
[2020-01-24] MEDS: GLIMEPIRIDE 2 MG TABLET PO SCH ×2 (09:32→16:14)
[2020-01-24] MEDS: ASPIRIN EC 325 MG TABLET PO SCH (09:32)
[2020-01-24] MEDS: MAGNESIUM OXIDE 400 MG TABLET PO SCH ×2 (09:32→20:12)
[2020-01-24] MEDS: DOCUSATE SODIUM 100 MG CAPSULE PO SCH (09:32)
[2020-01-24] MEDS: metFORMIN 500 MG TABLET PO SCH ×2 (09:32→16:14)
[2020-01-24] MEDS: carvediloL 25 MG TABLET PO SCH ×2 (09:32→20:12)
[2020-01-24] MEDS: oxyCODONE/ACETAMINOPHEN 5-325 MG TABLET PO PRN ×2 (09:33→16:28)
[2020-01-24] MEDS: allopurinoL 100 MG TABLET PO SCH (09:33)
[2020-01-24] MEDS: FUROSEMIDE 20 MG TABLET PO SCH (09:33)
[2020-01-24] MEDS: FERROUS SULFATE 325 MG TABLET PO SCH (09:34)
[2020-01-24] MEDS: PANTOPRAZOLE 40 MG TABLET PO SCH (09:34)
[2020-01-24] MEDS: CLOPIDOGREL 75 MG TABLET PO SCH (09:34)
[2020-01-24] MEDS: CHLORHEXIDINE 0.12% ORAL RINSE 60 ML BOTTLE SWISH/SPIT SCH ×2 (09:34→20:14)
[2020-01-24] MEDS: traZODone 50 MG TABLET PO SCH ×2 (09:35→20:12)
[2020-01-24] MEDS: SPIRONOLACTONE 25 MG TABLET PO SCH (09:35)
[2020-01-24] MEDS: LOSARTAN 50 MG TABLET PO SCH (20:12)
[2020-01-24] MEDS: ATORVASTATIN 80 MG TABLET PO SCH (20:12)
[2020-01-24] MEDS: NORTRIPTYLINE 75 MG CAPSULE PO SCH (20:14)
[2020-01-25] MEDS: MORPHINE 4 MG/1 ML VIAL IV PRN ×8 (00:11→23:55)
[2020-01-25 06:18] LABS: Basophils % 0.4 % (0.0-0.8); Eosinophils # 0.2 10*3/uL (0.0-0.87); Eosinophils % 1.5 % (0.00-10.9); Hematocrit 26.4 VOL% (35.7-47.0); Hemoglobin 8.9 GM/DL (12.0-16.0); Immature Granulocytes % 0.6 %; Immature Granulocytes Absolute 0.06 #; Lymphocytes # 1.5 10*3/uL (1.4-4.0); Lymphocytes % 14.7 % (21.3-54.2); Mean Corpuscular HGB Conc 33.7 GM/DL (32-36); Mean Corpuscular Volume 87.7 FL (87-102); Monocytes % 12.9 % (1.7-12.7); Neutrophils % 69.9 % (38.7-73.9); Platelet Count 128 T/CUMM (130-400); Red Blood Count 3.01 MC/CUMM (3.8-5.5); Red Cell Distribution Width 15.5 % (9.3-17.3)
[2020-01-25 06:54] LABS: Alanine Aminotransferase 36 U/L (13-56); Albumin 2.7 G/DL (3.4-5.0); Alkaline Phosphatase 77 U/L (45-117); Aspartate Amino Transferase 45 U/L (0-37); Bilirubin,Indirect 0.7 MG/DL (0.0-1.0); Blood Urea Nitrogen 50 MG/DL (7-18); Calcium 8.3 MG/DL (8.5-10.1); Estimated Glom Filtration Rate 47 ML/MIN; Osmolality,Calculated 284.7 MOS/KG (273-304); Osmolality,Calculated 286.5 MOS/KG (273-304); Total Protein 5.7 G/DL (6.4-8.3)
[2020-01-25 06:57] LABS: Glucose 45 MG/DL (74-106)
[2020-01-25] MEDS: ASPIRIN EC 325 MG TABLET PO SCH (09:34)
[2020-01-25] MEDS: CYANOCOBALAMIN 500 MCG TABLET PO SCH (09:34)
[2020-01-25] MEDS: GLIMEPIRIDE 2 MG TABLET PO SCH ×2 (09:34→17:00)
[2020-01-25] MEDS: MAGNESIUM OXIDE 400 MG TABLET PO SCH ×2 (09:34→20:31)
[2020-01-25] MEDS: traZODone 50 MG TABLET PO SCH ×2 (09:35→20:31)
[2020-01-25] MEDS: POTASSIUM CHLORIDE 20 MEQ TABLET PO PRN (09:35)
[2020-01-25] MEDS: PANTOPRAZOLE 40 MG TABLET PO SCH (09:35)
[2020-01-25] MEDS: metFORMIN 500 MG TABLET PO SCH ×2 (09:35→17:00)
[2020-01-25] MEDS: DOCUSATE SODIUM 100 MG CAPSULE PO SCH (09:35)
[2020-01-25] MEDS: FERROUS SULFATE 325 MG TABLET PO SCH (09:35)
[2020-01-25] MEDS: FUROSEMIDE 20 MG TABLET PO SCH (09:36)
[2020-01-25] MEDS: CHLORHEXIDINE 0.12% ORAL RINSE 60 ML BOTTLE SWISH/SPIT SCH ×2 (09:36→20:34)
[2020-01-25] MEDS: INSULIN NPH/REGULAR 70/30 100 UNIT/ML SUBCUT SCH ×2 (09:36→17:00)
[2020-01-25] MEDS: allopurinoL 100 MG TABLET PO SCH (09:36)
[2020-01-25] MEDS: carvediloL 25 MG TABLET PO SCH ×2 (09:36→20:31)
[2020-01-25] MEDS: CLOPIDOGREL 75 MG TABLET PO SCH (09:36)
[2020-01-25] MEDS: SPIRONOLACTONE 25 MG TABLET PO SCH (09:36)
[2020-01-25] MEDS: INSULIN REGULAR 100 UNIT/ML SUBCUT SCH ×4 (09:37→22:13)
[2020-01-25] MEDS ORDERED: POTASSIUM CHLORIDE 20 MEQ TABLET PO ONE (11:02)
[2020-01-25] MEDS: ATORVASTATIN 80 MG TABLET PO SCH (20:31)
[2020-01-25] MEDS: ASCORBIC ACID 500 MG TABLET PO SCH (20:31)
[2020-01-25] MEDS: LOSARTAN 50 MG TABLET PO SCH (20:32)
[2020-01-25] MEDS: NORTRIPTYLINE 75 MG CAPSULE PO SCH (20:33)
[2020-01-26] MEDS: MORPHINE 4 MG/1 ML VIAL IV PRN ×6 (01:43→23:24)
[2020-01-26 07:00] LABS: Basophils % 0.2 % (0.0-0.8); Eosinophils # 0.2 10*3/uL (0.0-0.87); Eosinophils % 1.8 % (0.00-10.9); Hematocrit 25.7 VOL% (35.7-47.0); Hemoglobin 8.5 GM/DL (12.0-16.0); Immature Granulocytes % 0.8 %; Immature Granulocytes Absolute 0.07 #; Lymphocytes # 1.3 10*3/uL (1.4-4.0); Lymphocytes % 16.1 % (21.3-54.2); Mean Corpuscular HGB Conc 33.1 GM/DL (32-36); Mean Corpuscular Volume 88.9 FL (87-102); Mean Platelet Volume 9.5 FL (9.6-12.0); Monocytes % 11.4 % (1.7-12.7); Neutrophils % 69.7 % (38.7-73.9); Platelet Count 138 T/CUMM (130-400); Red Blood Count 2.89 MC/CUMM (3.8-5.5); Red Cell Distribution Width 15.3 % (9.3-17.3); White Blood Count 8.3 T/CUMM (4-12)
[2020-01-26 07:18] LABS: Calcium 8.5 MG/DL (8.5-10.1); Osmolality,Calculated 286.5 MOS/KG (273-304)
[2020-01-26] MEDS: INSULIN REGULAR 100 UNIT/ML SUBCUT SCH ×4 (08:33→20:29)
[2020-01-26] MEDS: INSULIN NPH/REGULAR 70/30 100 UNIT/ML SUBCUT SCH ×2 (08:33→16:43)
[2020-01-26] MEDS: MAGNESIUM OXIDE 400 MG TABLET PO SCH ×2 (08:33→20:30)
[2020-01-26] MEDS: GLIMEPIRIDE 2 MG TABLET PO SCH ×2 (08:34→16:43)
[2020-01-26] MEDS: metFORMIN 500 MG TABLET PO SCH ×2 (08:34→16:43)
[2020-01-26] MEDS: carvediloL 25 MG TABLET PO SCH (08:34)
[2020-01-26] MEDS: ASPIRIN EC 325 MG TABLET PO SCH (08:34)
[2020-01-26] MEDS: CLOPIDOGREL 75 MG TABLET PO SCH (08:34)
[2020-01-26] MEDS: FERROUS SULFATE 325 MG TABLET PO SCH (08:34)
[2020-01-26] MEDS: CYANOCOBALAMIN 500 MCG TABLET PO SCH (08:34)
[2020-01-26] MEDS: allopurinoL 100 MG TABLET PO SCH (08:34)
[2020-01-26] MEDS: DOCUSATE SODIUM 100 MG CAPSULE PO SCH (08:34)
[2020-01-26] MEDS: traZODone 50 MG TABLET PO SCH ×2 (08:34→20:29)
[2020-01-26] MEDS: CHLORHEXIDINE 0.12% ORAL RINSE 60 ML BOTTLE SWISH/SPIT SCH ×2 (08:35→20:30)
[2020-01-26] MEDS: SPIRONOLACTONE 25 MG TABLET PO SCH (08:35)
[2020-01-26] MEDS: FUROSEMIDE 20 MG TABLET PO SCH (08:35)
[2020-01-26] MEDS: ASCORBIC ACID 500 MG TABLET PO SCH ×2 (08:35→20:30)
[2020-01-26] MEDS: PANTOPRAZOLE 40 MG TABLET PO SCH (08:35)
[2020-01-26] MEDS ORDERED: SODIUM CHLORIDE 0.9% 1,000 ML IV PRN (12:06)
[2020-01-26] MEDS ORDERED: FUROSEMIDE 40 MG/4 ML VIAL IV ONE (14:45)
[2020-01-26] MEDS: ATORVASTATIN 80 MG TABLET PO SCH (20:30)
[2020-01-26] MEDS: NORTRIPTYLINE 75 MG CAPSULE PO SCH (20:30)
[2020-01-27] MEDS: MORPHINE 4 MG/1 ML VIAL IV PRN ×2 (00:51→02:55)
[2020-01-27 06:14] LABS: Basophils % 0.4 % (0.0-0.8); Eosinophils # 0.2 10*3/uL (0.0-0.87); Eosinophils % 2.4 % (0.00-10.9); Hemoglobin 10.2 GM/DL (12.0-16.0); Immature Granulocytes % 1.2 %; Immature Granulocytes Absolute 0.11 #; Lymphocytes # 1.5 10*3/uL (1.4-4.0); Lymphocytes % 15.5 % (21.3-54.2); Mean Corpuscular Volume 88.8 FL (87-102); Mean Platelet Volume 9.3 FL (9.6-12.0); Monocytes % 10.1 % (1.7-12.7); Neutrophils % 70.4 % (38.7-73.9); Platelet Count 176 T/CUMM (130-400); Red Blood Count 3.38 MC/CUMM (3.8-5.5); White Blood Count 9.5 T/CUMM (4-12)
[2020-01-27 06:57] LABS: Alanine Aminotransferase 29 U/L (13-56); Albumin 2.5 G/DL (3.4-5.0); Alkaline Phosphatase 101 U/L (45-117); Aspartate Amino Transferase 21 U/L (0-37); Bilirubin,Indirect 0.7 MG/DL (0.0-1.0); Blood Urea Nitrogen 44 MG/DL (7-18); Estimated Glom Filtration Rate 52 ML/MIN; Glucose 159 MG/DL (74-106); Osmolality,Calculated 288.7 MOS/KG (273-304); Total Protein 6.1 G/DL (6.4-8.3)
[2020-01-27] MEDS ORDERED: FUROSEMIDE 40 MG/4 ML VIAL IV ONE (08:27)
[2020-01-27] MEDS ORDERED: LOSARTAN 25 MG TABLET PO SCH (09:00)
[2020-01-27] MEDS: INSULIN REGULAR 100 UNIT/ML SUBCUT SCH ×4 (09:41→22:28)
[2020-01-27] MEDS: INSULIN NPH/REGULAR 70/30 100 UNIT/ML SUBCUT SCH ×2 (09:41→16:51)
[2020-01-27] MEDS: metFORMIN 500 MG TABLET PO SCH ×2 (09:42→16:50)
[2020-01-27] MEDS: CHLORHEXIDINE 0.12% ORAL RINSE 60 ML BOTTLE SWISH/SPIT SCH ×2 (09:42→21:20)
[2020-01-27] MEDS: GLIMEPIRIDE 2 MG TABLET PO SCH ×2 (09:42→16:50)
[2020-01-27] MEDS: PANTOPRAZOLE 40 MG TABLET PO SCH (09:42)
[2020-01-27] MEDS: SPIRONOLACTONE 25 MG TABLET PO SCH (09:42)
[2020-01-27] MEDS: FERROUS SULFATE 325 MG TABLET PO SCH (09:43)
[2020-01-27] MEDS: CYANOCOBALAMIN 500 MCG TABLET PO SCH (09:43)
[2020-01-27] MEDS: MAGNESIUM OXIDE 400 MG TABLET PO SCH ×2 (09:43→21:25)
[2020-01-27] MEDS: FUROSEMIDE 20 MG TABLET PO SCH (09:43)
[2020-01-27] MEDS: ASPIRIN EC 325 MG TABLET PO SCH (09:43)
[2020-01-27] MEDS: DOCUSATE SODIUM 100 MG CAPSULE PO SCH (09:44)
[2020-01-27] MEDS: allopurinoL 100 MG TABLET PO SCH (09:44)
[2020-01-27] MEDS: ASCORBIC ACID 500 MG TABLET PO SCH ×2 (10:15→21:20)
[2020-01-27] MEDS: traZODone 50 MG TABLET PO SCH ×2 (10:18→21:19)
[2020-01-27] MEDS: ATORVASTATIN 80 MG TABLET PO SCH (21:20)
[2020-01-27] MEDS: NORTRIPTYLINE 75 MG CAPSULE PO SCH (21:21)
[2020-01-28 05:46] LABS: Basophils % 0.4 % (0.0-0.8); Eosinophils # 0.4 10*3/uL (0.0-0.87); Eosinophils % 3.4 % (0.00-10.9); Hematocrit 31.4 VOL% (35.7-47.0); Hemoglobin 10.5 GM/DL (12.0-16.0); Immature Granulocytes % 1.7 %; Immature Granulocytes Absolute 0.19 #; Lymphocytes # 1.7 10*3/uL (1.4-4.0); Lymphocytes % 15.6 % (21.3-54.2); Mean Corpuscular HGB Conc 33.4 GM/DL (32-36); Mean Corpuscular Volume 88.5 FL (87-102); Mean Platelet Volume 9.2 FL (9.6-12.0); Monocytes % 10.7 % (1.7-12.7); Neutrophils % 68.2 % (38.7-73.9); Platelet Count 231 T/CUMM (130-400); Red Blood Count 3.55 MC/CUMM (3.8-5.5); Red Cell Distribution Width 14.9 % (9.3-17.3)
[2020-01-28 06:41] LABS: Osmolality,Calculated 283.5 MOS/KG (273-304)
[2020-01-28 06:49] LABS: Alanine Aminotransferase 26 U/L (13-56); Albumin 2.4 G/DL (3.4-5.0); Alkaline Phosphatase 108 U/L (45-117); Aspartate Amino Transferase 22 U/L (0-37); Bilirubin,Indirect 0.5 MG/DL (0.0-1.0); Blood Urea Nitrogen 40 MG/DL (7-18); Estimated Glom Filtration Rate 57 ML/MIN; Osmolality,Calculated 281.7 MOS/KG (273-304); Total Protein 6.3 G/DL (6.4-8.3)
[2020-01-28 07:16] LABS: Glucose 48 MG/DL (74-106)
[2020-01-28] MEDS: INSULIN NPH/REGULAR 70/30 100 UNIT/ML SUBCUT SCH (07:38)
[2020-01-28] MEDS: INSULIN REGULAR 100 UNIT/ML SUBCUT SCH ×4 (07:38→21:19)
[2020-01-28] MEDS: allopurinoL 100 MG TABLET PO SCH (10:05)
[2020-01-28] MEDS: ASCORBIC ACID 500 MG TABLET PO SCH ×2 (10:06→21:17)
[2020-01-28] MEDS: CYANOCOBALAMIN 500 MCG TABLET PO SCH (10:06)
[2020-01-28] MEDS: metFORMIN 500 MG TABLET PO SCH (10:06)
[2020-01-28] MEDS: DOCUSATE SODIUM 100 MG CAPSULE PO SCH (10:06)
[2020-01-28] MEDS: POTASSIUM CHLORIDE 20 MEQ TABLET PO PRN ×2 (10:06→17:10)
[2020-01-28] MEDS: FUROSEMIDE 20 MG TABLET PO SCH (10:07)
[2020-01-28] MEDS: ASPIRIN EC 325 MG TABLET PO SCH (10:07)
[2020-01-28] MEDS: carvediloL 6.25 MG TABLET PO SCH ×2 (10:07→21:19)
[2020-01-28] MEDS: traZODone 50 MG TABLET PO SCH ×2 (10:07→21:16)
[2020-01-28] MEDS: FERROUS SULFATE 325 MG TABLET PO SCH (10:07)
[2020-01-28] MEDS: MAGNESIUM OXIDE 400 MG TABLET PO SCH ×2 (10:07→21:16)
[2020-01-28] MEDS: GLIMEPIRIDE 2 MG TABLET PO SCH ×2 (10:07→17:10)
[2020-01-28] MEDS: CHLORHEXIDINE 0.12% ORAL RINSE 60 ML BOTTLE SWISH/SPIT SCH ×2 (10:08→21:28)
[2020-01-28] MEDS: PANTOPRAZOLE 40 MG TABLET PO SCH (10:08)
[2020-01-28] MEDS: SPIRONOLACTONE 25 MG TABLET PO SCH (10:08)
[2020-01-28] MEDS: ATORVASTATIN 80 MG TABLET PO SCH (21:16)
[2020-01-28] MEDS: oxyCODONE/ACETAMINOPHEN 5-325 MG TABLET PO PRN (21:18)
[2020-01-28] MEDS: NORTRIPTYLINE 75 MG CAPSULE PO SCH (21:19)
[2020-01-29] MEDS ORDERED: diphenhydrAMINE CAP 25 MG CAPSULE PO ONE ×2 (00:59→05:15)
[2020-01-29 05:30] LABS: Basophils # 0.1 10*3/uL (0.0-0.2); Basophils % 0.4 % (0.0-0.8); Eosinophils # 0.4 10*3/uL (0.0-0.87); Eosinophils % 2.9 % (0.00-10.9); Hematocrit 32.6 VOL% (35.7-47.0); Hemoglobin 10.7 GM/DL (12.0-16.0); Immature Granulocytes % 1.5 %; Lymphocytes # 1.4 10*3/uL (1.4-4.0); Lymphocytes % 10.6 % (21.3-54.2); Mean Corpuscular HGB Conc 32.8 GM/DL (32-36); Mean Corpuscular Volume 90.6 FL (87-102); Monocytes % 10.6 % (1.7-12.7); Platelet Count 276 T/CUMM (130-400); White Blood Count 13.3 T/CUMM (4-12)
[2020-01-29] MEDS: ASPIRIN EC 325 MG TABLET PO SCH (08:22)
[2020-01-29] MEDS: CYANOCOBALAMIN 500 MCG TABLET PO SCH (08:22)
[2020-01-29] MEDS: MAGNESIUM OXIDE 400 MG TABLET PO SCH ×2 (08:22→21:50)
[2020-01-29] MEDS: carvediloL 6.25 MG TABLET PO SCH (08:22)
[2020-01-29] MEDS: PANTOPRAZOLE 40 MG TABLET PO SCH (08:22)
[2020-01-29] MEDS: GLIMEPIRIDE 2 MG TABLET PO SCH ×2 (08:22→16:51)
[2020-01-29] MEDS: ASCORBIC ACID 500 MG TABLET PO SCH ×2 (08:23→21:50)
[2020-01-29] MEDS: allopurinoL 100 MG TABLET PO SCH (08:23)
[2020-01-29] MEDS: FUROSEMIDE 20 MG TABLET PO SCH (08:23)
[2020-01-29] MEDS: traZODone 50 MG TABLET PO SCH ×2 (08:23→21:46)
[2020-01-29] MEDS: SPIRONOLACTONE 25 MG TABLET PO SCH (08:23)
[2020-01-29] MEDS: DOCUSATE SODIUM 100 MG CAPSULE PO SCH (08:23)
[2020-01-29] MEDS: FERROUS SULFATE 325 MG TABLET PO SCH (08:24)
[2020-01-29] MEDS: metFORMIN 500 MG TABLET PO SCH (08:24)
[2020-01-29] MEDS: INSULIN NPH/REGULAR 70/30 100 UNIT/ML SUBCUT SCH (08:25)
[2020-01-29] MEDS: INSULIN REGULAR 100 UNIT/ML SUBCUT SCH ×4 (08:25→21:50)
[2020-01-29] MEDS: CHLORHEXIDINE 0.12% ORAL RINSE 60 ML BOTTLE SWISH/SPIT SCH ×2 (08:29→21:50)
[2020-01-29] MEDS ORDERED: diphenhydrAMINE CAP 25 MG CAPSULE PO PRN (09:46)
[2020-01-29] MEDS: methylPREDNISolone 4 MG TABLET PO SCH ×4 (09:51→21:50)
[2020-01-29] MEDS: carvediloL 12.5 MG TABLET PO SCH ×2 (09:52→21:50)
[2020-01-29] MEDS: CETIRIZINE 10 MG TABLET PO SCH ×2 (12:35→21:50)
[2020-01-29] MEDS: NORTRIPTYLINE 75 MG CAPSULE PO SCH (21:50)
[2020-01-29] MEDS: ATORVASTATIN 80 MG TABLET PO SCH (21:50)
[2020-01-30 06:21] LABS: Basophils % 0.3 % (0.0-0.8); Hematocrit 28.5 VOL% (35.7-47.0); Hemoglobin 9.5 GM/DL (12.0-16.0); Immature Granulocytes % 2.3 %; Immature Granulocytes Absolute 0.24 #; Lymphocytes # 0.7 10*3/uL (1.4-4.0); Lymphocytes % 7.1 % (21.3-54.2); Mean Corpuscular HGB Conc 33.3 GM/DL (32-36); Mean Corpuscular Volume 89.1 FL (87-102); Mean Platelet Volume 8.9 FL (9.6-12.0); Monocytes % 8.1 % (1.7-12.7); Neutrophils % 82.2 % (38.7-73.9); Platelet Count 266 T/CUMM (130-400); White Blood Count 10.3 T/CUMM (4-12)
[2020-01-30 07:23] LABS: Calcium 8.7 MG/DL (8.5-10.1); Osmolality,Calculated 288.1 MOS/KG (273-304)
[2020-01-30] MEDS: INSULIN NPH/REGULAR 70/30 100 UNIT/ML SUBCUT SCH (08:42)
[2020-01-30] MEDS: INSULIN REGULAR 100 UNIT/ML SUBCUT SCH ×4 (08:43→22:01)
[2020-01-30] MEDS: GLIMEPIRIDE 2 MG TABLET PO SCH ×2 (08:44→16:41)
[2020-01-30] MEDS: MAGNESIUM OXIDE 400 MG TABLET PO SCH ×2 (08:44→21:58)
[2020-01-30] MEDS: ASPIRIN EC 325 MG TABLET PO SCH (08:44)
[2020-01-30] MEDS: DOCUSATE SODIUM 100 MG CAPSULE PO SCH (08:44)
[2020-01-30] MEDS: traZODone 50 MG TABLET PO SCH ×2 (08:44→21:58)
[2020-01-30] MEDS: CYANOCOBALAMIN 500 MCG TABLET PO SCH (08:45)
[2020-01-30] MEDS: FUROSEMIDE 20 MG TABLET PO SCH (08:45)
[2020-01-30] MEDS: CETIRIZINE 10 MG TABLET PO SCH ×2 (08:45→21:58)
[2020-01-30] MEDS: metFORMIN 500 MG TABLET PO SCH (08:45)
[2020-01-30] MEDS: allopurinoL 100 MG TABLET PO SCH (08:45)
[2020-01-30] MEDS: carvediloL 12.5 MG TABLET PO SCH ×2 (08:45→21:58)
[2020-01-30] MEDS: SPIRONOLACTONE 25 MG TABLET PO SCH (08:45)
[2020-01-30] MEDS: FERROUS SULFATE 325 MG TABLET PO SCH (08:45)
[2020-01-30] MEDS: ASCORBIC ACID 500 MG TABLET PO SCH ×2 (08:45→21:58)
[2020-01-30] MEDS: PANTOPRAZOLE 40 MG TABLET PO SCH (08:46)
[2020-01-30] MEDS: CHLORHEXIDINE 0.12% ORAL RINSE 60 ML BOTTLE SWISH/SPIT SCH ×2 (08:46→22:03)
[2020-01-30] MEDS: methylPREDNISolone 4 MG TABLET PO SCH ×4 (08:51→21:58)
[2020-01-30] MEDS: hydrOXYzine HCL 25 MG TABLET PO PRN ×2 (11:37→21:58)
[2020-01-30] MEDS ORDERED: INSULIN REGULAR 100 UNIT/ML SUBCUT ONE (13:34)
[2020-01-30] MEDS: ATORVASTATIN 80 MG TABLET PO SCH (21:58)
[2020-01-30] MEDS: NORTRIPTYLINE 75 MG CAPSULE PO SCH (22:02)
[2020-01-31 05:06] LABS: Basophils # 0.1 10*3/uL (0.0-0.2); Basophils % 0.6 % (0.0-0.8); Eosinophils # 0.2 10*3/uL (0.0-0.87); Eosinophils % 1.3 % (0.00-10.9); Hematocrit 28.6 VOL% (35.7-47.0); Hemoglobin 9.5 GM/DL (12.0-16.0); Immature Granulocytes % 2.2 %; Immature Granulocytes Absolute 0.26 #; Lymphocytes # 1.5 10*3/uL (1.4-4.0); Lymphocytes % 12.9 % (21.3-54.2); Mean Corpuscular HGB Conc 33.2 GM/DL (32-36); Mean Corpuscular Volume 89.9 FL (87-102); Mean Platelet Volume 8.9 FL (9.6-12.0); Monocytes % 11.8 % (1.7-12.7); Neutrophils % 71.2 % (38.7-73.9); Platelet Count 277 T/CUMM (130-400); Red Blood Count 3.18 MC/CUMM (3.8-5.5); Red Cell Distribution Width 14.7 % (9.3-17.3); White Blood Count 11.9 T/CUMM (4-12)
[2020-01-31 05:37] LABS: Calcium 9.1 MG/DL (8.5-10.1); Osmolality,Calculated 279.7 MOS/KG (273-304)
[2020-01-31] MEDS: INSULIN REGULAR 100 UNIT/ML SUBCUT SCH ×4 (08:27→22:00)
[2020-01-31] MEDS: INSULIN NPH/REGULAR 70/30 100 UNIT/ML SUBCUT SCH (08:29)
[2020-01-31] MEDS: ASPIRIN EC 325 MG TABLET PO SCH (08:29)
[2020-01-31] MEDS: GLIMEPIRIDE 2 MG TABLET PO SCH ×2 (08:29→16:58)
[2020-01-31] MEDS: MAGNESIUM OXIDE 400 MG TABLET PO SCH ×2 (08:29→21:56)
[2020-01-31] MEDS: DOCUSATE SODIUM 100 MG CAPSULE PO SCH (08:29)
[2020-01-31] MEDS: ASCORBIC ACID 500 MG TABLET PO SCH ×2 (08:30→21:57)
[2020-01-31] MEDS: FUROSEMIDE 20 MG TABLET PO SCH (08:30)
[2020-01-31] MEDS: traZODone 50 MG TABLET PO SCH ×2 (08:30→21:56)
[2020-01-31] MEDS: allopurinoL 100 MG TABLET PO SCH (08:30)
[2020-01-31] MEDS: metFORMIN 500 MG TABLET PO SCH (08:30)
[2020-01-31] MEDS: CYANOCOBALAMIN 500 MCG TABLET PO SCH (08:30)
[2020-01-31] MEDS: CETIRIZINE 10 MG TABLET PO SCH ×2 (08:30→21:57)
[2020-01-31] MEDS: PANTOPRAZOLE 40 MG TABLET PO SCH (08:30)
[2020-01-31] MEDS: SPIRONOLACTONE 25 MG TABLET PO SCH (08:31)
[2020-01-31] MEDS: CHLORHEXIDINE 0.12% ORAL RINSE 60 ML BOTTLE SWISH/SPIT SCH ×2 (08:31→21:59)
[2020-01-31] MEDS: FERROUS SULFATE 325 MG TABLET PO SCH (08:31)
[2020-01-31] MEDS: carvediloL 12.5 MG TABLET PO SCH ×2 (08:31→21:56)
[2020-01-31] MEDS: methylPREDNISolone 4 MG TABLET PO SCH ×4 (08:39→21:57)
[2020-01-31] MEDS ORDERED: metFORMIN 500 MG TABLET PO SCH ×2 (17:00)
[2020-01-31] MEDS: ATORVASTATIN 80 MG TABLET PO SCH (21:56)
[2020-01-31] MEDS: NORTRIPTYLINE 75 MG CAPSULE PO SCH (21:57)
[2020-02-01 07:07] LABS: Basophils # 0.1 10*3/uL (0.0-0.2); Basophils % 0.5 % (0.0-0.8); Eosinophils % 0.4 % (0.00-10.9); Hematocrit 29.9 VOL% (35.7-47.0); Hemoglobin 9.9 GM/DL (12.0-16.0); Immature Granulocytes % 2.8 %; Immature Granulocytes Absolute 0.31 #; Lymphocytes # 1.4 10*3/uL (1.4-4.0); Lymphocytes % 12.2 % (21.3-54.2); Mean Corpuscular HGB Conc 33.1 GM/DL (32-36); Mean Corpuscular Volume 90.9 FL (87-102); Mean Platelet Volume 8.7 FL (9.6-12.0); Neutrophils % 74.1 % (38.7-73.9); Platelet Count 310 T/CUMM (130-400); Red Blood Count 3.29 MC/CUMM (3.8-5.5); Red Cell Distribution Width 15.2 % (9.3-17.3)
[2020-02-01 07:28] LABS: Calcium 9.2 MG/DL (8.5-10.1); Osmolality,Calculated 285.8 MOS/KG (273-304)
[2020-02-01] MEDS: INSULIN REGULAR 100 UNIT/ML SUBCUT SCH ×3 (08:28→16:45)
[2020-02-01] MEDS: INSULIN NPH/REGULAR 70/30 100 UNIT/ML SUBCUT SCH (08:29)
[2020-02-01] MEDS: CETIRIZINE 10 MG TABLET PO SCH (08:31)
[2020-02-01] MEDS: ASCORBIC ACID 500 MG TABLET PO SCH (08:31)
[2020-02-01] MEDS: DOCUSATE SODIUM 100 MG CAPSULE PO SCH (08:32)
[2020-02-01] MEDS: ASPIRIN EC 325 MG TABLET PO SCH (08:32)
[2020-02-01] MEDS: GLIMEPIRIDE 2 MG TABLET PO SCH (08:32)
[2020-02-01] MEDS: methylPREDNISolone 4 MG TABLET PO SCH ×2 (08:32→13:49)
[2020-02-01] MEDS: PANTOPRAZOLE 40 MG TABLET PO SCH (08:32)
[2020-02-01] MEDS: MAGNESIUM OXIDE 400 MG TABLET PO SCH (08:32)
[2020-02-01] MEDS: FUROSEMIDE 20 MG TABLET PO SCH (08:33)
[2020-02-01] MEDS: FERROUS SULFATE 325 MG TABLET PO SCH (08:33)
[2020-02-01] MEDS: traZODone 50 MG TABLET PO SCH (08:33)
[2020-02-01] MEDS: carvediloL 12.5 MG TABLET PO SCH (08:33)
[2020-02-01] MEDS: metFORMIN 500 MG TABLET PO SCH (08:33)
[2020-02-01] MEDS: SPIRONOLACTONE 25 MG TABLET PO SCH (08:34)
[2020-02-01] MEDS: CHLORHEXIDINE 0.12% ORAL RINSE 60 ML BOTTLE SWISH/SPIT SCH (08:38)
[2020-02-01] MEDS: CYANOCOBALAMIN 500 MCG TABLET PO SCH (09:23)
[2020-02-01] MEDS: allopurinoL 100 MG TABLET PO SCH (09:24)
[2020-02-01 16:14] VITALS: BP 142/65
== END 2020-02-01 16:49 | disposition home health service (06) | DRG 234 ==
LOC: N.EDINP 20:48 → N.ED 20:48 → N.TELES 01-20 08:40 → N.CVR 01-22 12:01 → N.TELES 01-23 13:04
PROVIDERS: ADMIT Internal Medicine Geriatric Medicine
PROC: CLCCHCL (ICD-10-PCS; 2020-01-20 12:15)